=== PATIENT | male | born 1950 | race Caucasian/White ===

== ENCOUNTER 2019-10-22 14:42 | Emergency (ER) | payer MEDICARE, OTHER ==
[~2019-10-22] VITALS: Ht 172.7 cm; Wt 82.6 kg
[2019-10-22 15:08] VITALS: BP 131/85
[2019-10-22 15:15] VITALS: BP 131/85
[2019-10-22 15:16] VITALS: BP 131/85
--- NOTE | 2019-10-22 15:28 | ER.PDOC ---
General Chief Complaint: Extremities Stated Complaint: MALE TRAVEL OUT OF US: No Time seen by MD: 15:27 Source: patient, other Exam Limitations: no limitations History of Present Illness Initial Comments 68 Y/O MALE S/P 10/17/2019--CARDIAC CATH, ACCESS RIGHT GROIN. PATIENT WENT ON 5 MILE HIKE YESTERDAY NO WITH A SWELLING TO RIGHT GROIN. SEEN BY DR STREET SENT TO ED FOR CARE. PATIENT HAS NO OTHER SYMPTOMS. Severity: moderate Allergies: Coded Allergies: No Known Allergies (Unverified , 10/17/19) Home Meds No Active Prescriptions or Reported Meds Past Medical History Medical History: no pertinent history, cardiac problems Surgical History: no surgical history, cardiac cath Family History Significant Family History: no pertinent family hx Social History Alcohol Use: none Drug Use: none Reviewed Nursing Reviewed: Vital Signs, Abn. Noted, Nursing Assessment Review of Systems Constitutional: no symptoms reported EENTM: no symptoms reported Respiratory: no symptoms reported Cardiovascular: no symptoms reported Gastrointestinal: no symptoms reported Genitourinary: no symptoms reported Musculoskeletal: see HPI Skin: no symptoms reported Psychiatric/Neurological: no symptoms reported Hematologic/Lymphatic: no symptoms reported Immunological/Allergic: no symptoms reported Physical Exam General Appearance: No Apparent Distress Neck: Non-Tender, Full Range of Motion, Supple Respiratory: chest non-tender, lungs clear, normal breath sounds CVS: reg rate & rhythm, no murmur, no gallop, pulses nml Back: Normal Inspection, No CVA Tenderness Extremities: Normal Range of Motion, Swelling, Other Neurologic/Psychiatric: 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 Results/Orders Results/Orders Orders - ESTEPHANIA PAULSON DO Us Soft Tissue Extremity (10/22/19 15:42) Vital Signs Date Time Temp Pulse Resp B/P (MAP) Pulse Ox O2 Delivery O2 Flow Rate FiO2 10/22/19 15:16 97.9 51 16 131/85 (100) 97 Room Air 10/22/19 15:15 97.9 51 16 131/85 (100) 97 Room Air 10/22/19 15:15 97.9 51 16 10/22/19 15:08 97.9 51 16 97 Progress Progress DIFF DX IN DETAIL WITH PATIENT, ACTIVITY PER DR STREET. EKG/XRAY/CT/US Ultrasound: other Utrasound Comments: RIGHT GROIN US--CO/WITH HEMATOMA. 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 #2 Time Consult/PCP Called: 16:53 Consult/PCP: DR STREET--CASE DISCUSSED--SEND HOME NO STRENOUS ACTIVITY FOR 7 DAYS. Departure Time of Disposition: 16:57 Disposition: 01 HOME, SELF-CARE Impression: Primary Impression: Hematoma of groin Condition: Stable Referrals: NETTIE YEN PA-C (PCP) PRIMARY CARE PROVIDER Additional Instructions: TO ED NEEDED, NO STRENUOUS ACTIVITY OR LIFTING MORE THEN 5 LBS FOR 7 DAYS. IF HEMATOMA--GETS BIGGER FOLLOW UP WITH DR STREET OR COME TO THE ED. Scripts No Active Prescriptions or Reported Meds Duration or Time Spent with Pa: 20 MIN ESTEPHANIA PAULSON DO Oct 22, 2019 15:28
--- NOTE | 2019-10-22 16:39 | DIREP ---
PROCEDURE:US SOFT TISSUE COMPARISON:[facility], CT, CTA CHEST, 10/17/2019, 12:47 PM. INDICATIONS:STAUS POST CARDIA CATH, RULE OUT PEUDOANEURSMY VS. HEMATOMA RT GROIN TECHNIQUE:Sonography of the soft tissues of the right groin was performed using grayscale and color Doppler imaging. FINDINGS: MASSES:None. FLUID COLLECTIONS:None. OTHER:Patent common femoral artery and vein. There is a 2.3 x 0.5 cm lymph node with fatty hilum is incidentally noted. There is a 1.2 x 1.0 x 1.2 cm hypoechoic, heterogeneous lesion with ill-defined borders and no internal vascularity in the area of concern. CONCLUSION: Soft tissue changes secondary to recent cardiac catheterization. Given the history and presentation, the finding is compatible with a hematoma. Contrast-enhanced CT could be helpful but should be based on clinical findings and suspicion. Dictated by: MATTHEW Physician on 10/22/2019 at 04:21 PM ac
== END 2019-10-22 17:04 | disposition home or self-care (01) ==
LOC: ER 14:42
DX: S30.1XXA Contusion of abdominal wall, initial encounter (principal); R19.09 Other intra-abdominal and pelvic swelling, mass and lump; X58.XXXA Exposure to other specified factors, initial encounter; Y93.89 Activity, other specified; Y92.89 Other specified places as the place of occurrence of the external cause; Y99.8 Other external cause status
CPT/HCPCS: 76882; 99284